=== PATIENT | male | born 1965 | race Caucasian/White ===

== ENCOUNTER → 2018-02-14 | Day surgery (SDC) | payer OTHER ==
[2018-02-12 14:10] VITALS: Ht 185.4 cm; Wt 102.3 kg
[~2018-02-14] VITALS: Ht 185.4 cm; Wt 102.3 kg
[~2018-02-14] MED LIST: ASCOGRA PO; ASPI81TA28 PO; CEFAZOLIN IV 2,000 MG in SYRINGE 0 ML IV SCH; FENTANYL CITRATE INJ 50 MCG/1 ML 2 ML VIAL ONE; LIDOCAINE HCL 2% 2 ML VIAL (20MG/ML) ONE; MIDAZOLAM HCL 1 MG/ML 2ML VIAL ONE; MULT-506 PO; PROPOFOL IV EMULSION 10 MG/ML 20 ML VIAL ONE; SODIUM CHLORIDE 0.9% 500ML 500 ML IV ONE
--- NOTE | 2018-02-14 08:15 | Endo History and Physical ---
History & Physical Date of Service: Feb 14, 2018. Chief Complaint: Referring Physician: History of Present Illness Rodrigo Higgins is a 52 year old male here for PEG placement. 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 Hx of cigar smoking, denies any tobacco chew. He is anticipating start of chemo and radiation within 1.5-2 weeks' time. PEG to be placed for nutritional support should he cannot tolerate PO intake after start of chemo/radiation. He is currently managed by Dr. Kolton Horton (Heme/Onc) and Dr. Bridgette Horton (Rad/Onc). He is currently able to tolerate PO intake of foods and liquids w/o odynophagia, dysphagia. Denies any issues w reflux, heartburn. Only abd surgery he every had was appendectomy. He denies any abd trauma otherwise. Past Surgical History Hx Cardiac Surgery: No Hx Internal Defibrillator: No Hx Pacemaker: No Hx Abdominal Surgery: Yes (APPENDECTOMY) Hx of Implantable Prosthesis: No Hx Post-Op Nausea and Vomiting: No Hx Cancer Surgery: Yes (TONGUE EXCISION/L NECK DISSECTION-12/2017) Hx Thoracic Surgery: No Hx Orthopedic: No Hx Urinary Tract Surgery: No Family History Esophogeal CA Social History Smoking Status: Former Smoker Hx Substance Use: No Hx Alcohol Use: Yes (OCC BEER ON WEEKENDS) Allergies Coded Allergies: No Known Allergies (Unverified , 02/12/18) Current Medications Reported Home Medications Medications Dose Route/Sig Max Daily Dose Days Date Category Dose Instructions Aspirin Ec (Aspirin) 81 Mg Tab 81 Mg PO QAM 02/06/18 Reported ON Hold at this time PER PT Ascorbic Acid 1 Gra Gra 1 Tab PO QAM 02/06/18 Reported Multivitamin (Multivitamins) Tab 1 Tab PO QAM 02/06/18 Reported Vital Signs Weight (Kilograms): 102.27 Height (Feet): 6 Height (Inches): 1 Physical Exam General Appearance: WD/WN, + thin Respiratory/Chest: Respiratory effort: no dyspnea Auscultation: breath sounds normal, CTA except as noted Cardiovascular: Apical Impulse: not displaced Heart Auscultation: RRR, normal S1, normal S2 Abdomen: Bowel Sounds: normal Inspection & Palpation: soft, non-distended, no tenderness, guarding & rebound Assessment and Plan 52 yo with base of tongue cancer who is preparing for chemo/XRT and requests PEG placement to ensure adequate PO intake/nutrition -Alerted of the risks/benefits, including the bleeding, inadvertent placement, infection, aspiration.
[2018-02-14 09:50] VITALS: TEMP 36
--- NOTE | 2018-02-14 09:56 | GI REPORT ---
Patient Name: Rodrigo Higgins Procedure Date: 02/14/2018 8:22 AM Date of : 1965 Admit Type: Outpatient Age: 52 Gender: Male Attending MD: Noel Mccarthy MD Procedure: Upper GI endoscopy Providers: Noel Mccarthy MD Referring MD: Akhil Matias Indications: Personal history of malignant neoplasm, of base of tongue. PEG tube necessary for pre and intratreatment nutrition. Patient Profile: Patient with base of tongue cancer who presents for pre chemo/XRT treatment PEG. Case throughouly discussed with patient and both today and clinic prior to today. Risks of PEG tube including inadverdant placement, bleeding, infection, as well as documented cases of "seeding" PEG track with cancerous cells from oropharnynx. Medicines: Monitored Anesthesia Care, Ancef 1000 mg IV Complications: No immediate complications. Estimated blood loss: None. Estimated Blood Loss: Estimated blood loss: none. Procedure: Pre-Anesthesia Assessment: - Pre-Anesthesia Assessment: - Prior to the procedure, a History and Physical was performed, and patient medications, allergies and sensitivities were reviewed. The patient's tolerance of previous anesthesia was reviewed. Please see [employer] for complete details. - The risks and benefits of the procedure and the sedation options and risks were discussed with the patient. All questions were answered and informed consent was obtained. - Patient identification and proposed procedure were verified prior to the procedure by the physician and the nurse. The procedure was verified in the pre-procedure area in the procedure room. After obtaining informed consent, the endoscope was passed carefully and meticuously under direct vision and only advanced when the lumen was clearly identified, C02 insuflation was utilized throughout the entirity of the procedure. Throughout the procedure, the patient's blood pressure, pulse, and oxygen saturations were monitored continuously. After obtaining informed consent, the endoscope was passed under direct vision. Throughout the procedure, the patient's blood pressure, pulse, and oxygen saturations were monitored continuously. The Scope was introduced through the mouth, and advanced to the second part of duodenum. The upper GI endoscopy was accomplished without difficulty. The patient tolerated the procedure well. Findings: The examined esophagus was normal. The entire examined stomach was normal. The patient was placed in the supine position for PEG placement. The stomach was insufflated to appose gastric and abdominal kaur. A site was located in the body of the stomach with excellent transillumination and manual external pressure for placement. The abdominal wall was marked and prepped in a sterile manner. The area was anesthetized with 5 mL of 1% lidocaine. The trocar needle was introduced through the abdominal wall and into the stomach under direct endoscopic view. A snare was introduced through the endoscope and opened in the gastric lumen. The guide wire was passed through the trocar and into the open snare. The snare was closed around the guide wire. The endoscope and snare were removed, pulling the wire out through the mouth. A skin incision was made at the site of needle insertion. The externally removable 20 Fr [employer] gastrostomy tube was lubricated. The G-tube was tied to the guide wire and pulled through the mouth and into the stomach. The trocar needle was removed, and the gastrostomy tube was pulled out from the stomach through the skin. The external bumper was attached to the gastrostomy tube, and the tube was cut to remove the guide wire. The final position of the gastrostomy tube was confirmed by relook endoscopy, and skin marking noted to be 2 cm at the external bumper. The final tension and compression of the abdominal wall by the PEG tube and external bumper were checked and revealed that the bumper was moderately tight and mildly deforming the skin. The feeding tube was capped, and the tube site cleaned and dressed. The examined duodenum was normal. Impression: - Normal esophagus. - Normal stomach. - Normal examined duodenum. - An externally removable PEG placement was successfully completed. - No specimens collected. Recommendation: - Discharge patient to home (with escort). - Written discharge instructions were provided to the patient. He has met with nutrition previously who will manage dietary needs. - The signs and symptoms of potential delayed complications were discussed with the patient including, fevers, chills, abdominal pain chris require at minimum a call to [facility] national stormwater leader or presentation to the ER. - Patient has a contact number available for emergencies. - Return to normal activities tomorrow. - Flush tube with 50 cc's of sterile water every 8 hrs overnight, ok to use PEG tube tomorrow. - Return to referring physician as previously scheduled. Noel Mccarthy MD 02/14/2018 9:56:50 AM This report has been signed electronically. Note Initiated On: 02/14/2018 8:22 AM Number of Addenda: 0 I attest to the content of the Intraoperative Record and orders documented therein, exceptions below {[id number]}
--- NOTE | 2018-02-14 10:08 | Anesthesiology Progress Note ---
Anesthesia Post Op Note Date & Time Feb 14, 2018 at 10:08 Vital Signs Pain Intensity: 0 Vital Signs Past 12 Hours Date Time Temp Pulse Resp B/P (MAP) Pulse Ox O2 Delivery O2 Flow Rate FiO2 02/14/18 10:03 83 12 120/78 (92) 96 Room Air 02/14/18 09:50 36.0 60 12 126/78 (94) 95 Room Air 02/14/18 08:25 36.6 61 18 128/84 (99) 95 Room Air Notes Mental Status: alert / awake / arousable, participated in evaluation Pt Amnestic to Procedure: Yes Nausea / Vomiting: adequately controlled Pain: adequately controlled Airway Patency, RR, SpO2: stable & adequate BP & HR: stable & adequate Hydration State: stable & adequate Anesthetic Complications: no major complications apparent
--- NOTE | 2018-02-14 10:10 | Discharge Instructions ---
Endoscopy Patient Instructions Date / Procedure Performed Feb 14, 2018. Percutaneous Endoscopic Gastrotomy (P.E.G) Tube Replacement / Removal Allergy Information Coded Allergies: No Known Allergies (Verified , 02/14/18) Home Medication List Scheduled Ascorbic Acid (Ascorbic Acid), 1 TAB PO QAM Aspirin (Aspirin Ec), 81 MG PO QAM Multivitamin (Multivitamin), 1 TAB PO QAM Discharge Date / Findings Feb 14, 2018. Findings: The examined esophagus was normal. The entire examined stomach was normal. The patient was placed in the supine position for PEG placement. The stomach was insufflated to appose gastric and abdominal kaur. A site was located in the body of the stomach with excellent transillumination and manual external pressure for placement. The abdominal wall was marked and prepped in a sterile manner. The area was anesthetized with 5 mL of 1% lidocaine. The trocar needle was introduced through the abdominal wall and into the stomach under direct endoscopic view. A snare was introduced through the endoscope and opened in the gastric lumen. The guide wire was passed through the trocar and into the open snare. The snare was closed around the guide wire. The endoscope and snare were removed, pulling the wire out through the mouth. A skin incision was made at the site of needle insertion. The externally removable 20 Fr [employer] gastrostomy tube was lubricated. The G-tube was tied to the guide wire and pulled through the mouth and into the stomach. The trocar needle was removed, and the gastrostomy tube was pulled out from the stomach through the skin. The external bumper was attached to the gastrostomy tube, and the tube was cut to remove the guide wire. The final position of the gastrostomy tube was confirmed by relook endoscopy, and skin marking noted to be 2 cm at the external bumper. The final tension and compression of the abdominal wall by the PEG tube and external bumper were checked and revealed that the bumper was moderately tight and mildly deforming the skin. The feeding tube was capped, and the tube site cleaned and dressed. The examined duodenum was normal. Impression: - Normal esophagus. - Normal stomach. - Normal examined duodenum. - An externally removable PEG placement was successfully completed. - No specimens collected. Recommendation: - Discharge patient to home (with escort). - Written discharge instructions were provided to the patient. He has met with nutrition previously who will manage dietary needs. - The signs and symptoms of potential delayed complications were discussed with the patient including, fevers, chills, abdominal pain chris require at minimum a call to [facility] [employer] air traffic control specialist or presentation to the ER. - Patient has a contact number available for emergencies. - Return to normal activities tomorrow. - Flush tube with 50 cc's of sterile water every 8 hrs overnight, ok to use PEG tube tomorrow. - Return to referring physician as previously scheduled. Provider Instructions Activity Recommendations * Resume regular activity . Diet Recommendations * Resume previous diet. * Advance diet as tolerated. * Before each feeding, aspirate the tube for residual gastric contents. Hold feedings for residual of 50 ml or more. * Elevate the head of the bed during and after feedings for 30-60 minutes . Medication Instructions * Resume usual medications. * Always flush the tube with warm water after administration of medication. Follow-Up Information Follow-up with DR. MILLER as scheduled Anesthesia Information What You Should Know You have had a procedure that required some medicine to reduce anxiety and discomfort. This treatment is called moderate sedation. After receiving the treatment, you may be sleepy, but you will be able to breathe on your own. The effects of the treatment may last for several hours. Follow these instructions along with Activity/Diet recommendations noted above: * Do NOT do anything where dizziness or clumsiness would be dangerous. * Rest quietly at home today, then you can be up and about tomorrow. * Have a responsible person stay with you the rest of today. * You may have had an I.V. today. If so, you may take the dressing off later today. Symptoms Additional Instructions If you experience any of the following symptoms after your procedure seek medical attention at your closest Emergency Room and/or call your primary care physician immediately: * Severe abdominal pain or bloating * Fever greater than 101.1 degrees within 24 hours after the procedure * Uncontrolled nausea and vomiting Avoid all tobacco products. If you need help to stop smoking, call [place]'s FREE QUIT LINE at [phone]. Your discharge instructions were prepared by provider Noel Mccarthy. Patient Instructions Signature Page Rodrigo Higgins Patient (or Guardian) Signature/Date: I have read and understand the instructions given to me by my caregivers. Caregiver/RN/Doctor Signature/Date: The above-named patient and/or guardian has received patient instructions on this date. + Original Patient Signature Page (only) stays with chart. Please make copy for patient.
[2018-02-14 10:20] VITALS: BP 128/86; PULSE 53; O2SAT 95
== END | disposition home or self-care (01) ==
LOC: C.GI 07:50
PROVIDERS: ATTEND Internal Medicine
DX: C02.9 Malignant neoplasm of tongue, unspecified (principal); Z87.891 Personal history of nicotine dependence; Z80.0 Family history of malignant neoplasm of digestive organs